=== PATIENT | female | born 1990 | race Caucasian/White ===

== ENCOUNTER 2016-10-20 16:37 | Emergency (ER) | payer OTHER ==
[~2016-10-20] VITALS: Ht 172.7 cm; Wt 108.9 kg
--- NOTE | ~2016-10-20 | EKG ---
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 : 1990 Requested By: Alicia Ash Order Number: [id number] MD: Justino Alonzo Measurements Intervals [place] Rate: 71 P: 41 TX: 163 QRS: 20 QRSD: 107 T: 38 QT: 385 QTc: 419 Interpretive Statements Sinus rhythm Low voltage, precordial leads Compared to ECG 07/18/2013 18:56:16 No significant change was found Electronically Signed On 10-21-2016 14:02:14 CDT by Justino Alonzo [email or web address] <ELECTRONICALLY SIGNED> By: Justino Alonzo MD, [facility] 10/21/16 1402 49 49 Justino Alonzo MD, [facility] /EPI
[~2016-10-20 16:37] MED LIST: ACYCLOVIR 400400 M1 PO; ALBUTEROL2.5 MG/31 INH; AMOXICILLIN500 M1 PO; ANTIVERT25 MG PO; APAP500 PO; AZITHROMYCIN250 MG PO; BENZONATATE200 MG PO; CLEOCIN HCL300 MG PO; COLACE100 MG PO; DOXYCYCLINE 10100 MG PO; FLEXERIL PO; FLONASE 0.05%50 MCG NS; IBUPROFEN 400400 M1 PO; IBUPROFEN 600600 M1 PO; KEFLEX500 MG PO; LEVAQUIN 500 M500 MG PO; MACROBID 100 M100 M1 PO; NAPROSYN500 MG PO; NOHOMEMEDICATIONS; NORCO 5-325 TA1 EACH PO; PAXIL10 MG PO; PERCOCET 5-3251 EACH PO; PHENERGAN 25 MG25 M1 PO; PRENATAL PO; PROGESTERONE100 MG PO; PROMETRIUM100 MG PO; TRINATE TABLET1 TAB; TRINATE TABLET1 TAB PO; TYLENOL325 MG PO; ULTRAM 50MG TAB50 MG PO; VALIUM2 MG PO; VALIUM5 MG PO; VENTOLIN HFA 1818 GM INH; VICODIN 5-5001 EACH PO; ZANAFLEX4 MG PO; ZOFRAN 4 MG ORAL4 MG PO; ZOFRAN ODT4 MG PO; ZOFRAN4 MG PO; ZPAK PO
[2016-10-20 16:59] LABS: ABSOLUTE NEUTROPHILS 4.7 thou/uL (1.4-8.2); BASOPHILS 1.1 % (0.0-2.0); EOSINOPHILS 3.9 % (0.0-3.0); HEMOGLOBIN 12.6 gm/dL (12.0-15.0); LYMPHOCYTES 34.4 % (24.0-44.0); MCV 82.5 fL (80.0-100.0); MONOCYTES 9.8 % (1.0-8.0); PLATELET COUNT 222 thou/uL (150-400); POLYS 50.8 % (36.0-66.0); RBC 4.48 mil/uL (4.20-5.00); RDW 14.6 % (10.5-14.5); WBC 9.3 thou/uL (4.0-11.0)
[2016-10-20 17:09] LABS: ANION GAP 8 mmol/L (7-16); BUN 14 mg/dL (7-18); CALCIUM 9.3 mg/dL (8.5-10.1); CHLORIDE 105 mmol/L (98-107); CO2 25 mmol/L (21-32); CREATININE 0.7 mg/dL (0.6-1.0); GLUCOSE 98 mg/dL (74-106); MANUAL DIFF NO; POTASSIUM 3.6 mmol/L (3.5-5.1); SODIUM 138 mmol/L (136-145)
[2016-10-20 17:16] LABS: ALBUMIN 3.5 g/dL (3.4-5.0); ALKALINE PHOSPHATASE 62 U/L (46-116); SGOT 34 U/L (15-37); SGPT 38 U/L (30-65); TOTAL BILIRUBIN 0.3 mg/dL (<0.1-1.0); TOTAL PROTEIN 7.4 g/dL (6.4-8.2); TROPONIN-I < 0.04 ng/mL (<0.04-0.07)
[2016-10-20] MEDS ORDERED: ZANTAC 150MG T150 MG PO (17:54)
[2016-10-20 18:03] VITALS: BP 97/76
== END 2016-10-20 18:09 | disposition home or self-care (01) ==
LOC: ER 16:37
PROVIDERS: Nurse Practitioner Family
DX: K29.70 Gastritis, unspecified, without bleeding (principal); F41.9 Anxiety disorder, unspecified; Z90.49 Acquired absence of other specified parts of digestive tract; Z88.5 Allergy status to narcotic agent

== ENCOUNTER 2016-11-03 07:25 | Emergency (ER) | payer OTHER ==
[~2016-11-03] VITALS: Ht 172.7 cm; Wt 104.3 kg
[~2016-11-03 07:25] MED LIST changes: +ZANTAC 150MG T150 MG PO
[2016-11-03 09:04] VITALS: BP 100/39
[2016-11-03] MEDS ORDERED: MAALOX ADVANCE770 ML PO (09:21)
== END 2016-11-03 09:30 | disposition home or self-care (01) ==
LOC: ER 07:25
DX: K29.00 Acute gastritis without bleeding (principal); F41.9 Anxiety disorder, unspecified; Z90.49 Acquired absence of other specified parts of digestive tract; Z88.5 Allergy status to narcotic agent

== ENCOUNTER 2017-02-09 16:24 | Emergency (ER) | payer OTHER ==
[~2017-02-09] VITALS: Ht 172.7 cm; Wt 106.6 kg
[~2017-02-09 16:24] MED LIST changes: +MAALOX ADVANCE770 ML PO
[2017-02-09 17:43] LABS: ABSOLUTE NEUTROPHILS 5.9 thou/uL (1.4-8.2); BASOPHILS 0.6 % (0.0-2.0); EOSINOPHILS 3.6 % (0.0-3.0); HEMATOCRIT 35.9 % (37.0-47.0); HEMOGLOBIN 12.2 gm/dL (12.0-15.0); LYMPHOCYTES 22.7 % (24.0-44.0); MANUAL DIFF NO; MCH 29.1 pg (26.0-34.0); MCHC 33.9 g/dL (28.0-37.0); MCV 85.9 fL (80.0-100.0); MONOCYTES 10.1 % (1.0-8.0); PLATELET COUNT 199 thou/uL (150-400); RBC 4.18 mil/uL (4.20-5.00); RDW 14.4 % (10.5-14.5); WBC 9.4 thou/uL (4.0-11.0)
[2017-02-09] MEDS ORDERED: NORCO 5-325 TA1 EACH PO (18:39)
[2017-02-09 18:42] VITALS: BP 97/45
== END 2017-02-09 18:50 | disposition home or self-care (01) ==
LOC: ER 16:24
PROVIDERS: Nurse Practitioner
DX: O20.0 Threatened abortion (principal); F41.9 Anxiety disorder, unspecified; Z3A.11 11 weeks gestation of pregnancy; Z90.49 Acquired absence of other specified parts of digestive tract; Z98.890 Other specified postprocedural states; Z88.5 Allergy status to narcotic agent

== ENCOUNTER 2017-02-10 19:28 | Emergency (ER) | payer OTHER ==
[~2017-02-10] VITALS: Ht 172.7 cm; Wt 106.6 kg
[2017-02-10 20:09] LABS: ABSOLUTE NEUTROPHILS 6.1 thou/uL (1.4-8.2); BASOPHILS 0.5 % (0.0-2.0); EOSINOPHILS 3.5 % (0.0-3.0); HEMOGLOBIN 11.9 gm/dL (12.0-15.0); LYMPHOCYTES 24.9 % (24.0-44.0); MCHC 34.2 g/dL (28.0-37.0); MCV 84.8 fL (80.0-100.0); MONOCYTES 9.6 % (1.0-8.0); PLATELET COUNT 213 thou/uL (150-400); POLYS 61.5 % (36.0-66.0); RBC 4.12 mil/uL (4.20-5.00); RDW 14.6 % (10.5-14.5); WBC 9.9 thou/uL (4.0-11.0)
[2017-02-10 20:14] LABS: MANUAL DIFF NO
[2017-02-10 20:19] LABS: CREATININE 0.8 mg/dL (0.6-1.0); POTASSIUM 3.6 mmol/L (3.5-5.1)
[2017-02-10 21:24] VITALS: BP 110/65
== END 2017-02-10 21:41 | disposition short-term general hospital (02) ==
LOC: ER 19:28
PROVIDERS: Nurse Practitioner
DX: O03.9 Complete or unspecified spontaneous abortion without complication (principal); R00.0 Tachycardia, unspecified; F41.9 Anxiety disorder, unspecified; Z98.890 Other specified postprocedural states; Z88.5 Allergy status to narcotic agent

== ENCOUNTER 2017-04-11 21:49 | Emergency (ER) | payer OTHER ==
[~2017-04-11] VITALS: Ht 172.7 cm; Wt 104.3 kg
[2017-04-11 22:08] LABS: URINE BILIRUBIN 1+ (Negative); URINE BLOOD 2+ (Negative); URINE COLOR YELLOW; URINE GLUCOSE-RANDOM* NEGATIVE (Negative); URINE KETONES 1+ (Negative); URINE NITRITE NEGATIVE (Negative); URINE PROTEIN (DIPSTICK) 1+ (Negative); URINE SPECIFIC GRAVITY >= 1.030 (1.003-1.035); URINE UROBILINOGEN 0.2 E.U./dl (0.2-1.0)
[2017-04-11 22:14] LABS: ICTOTEST (BILI CONFIRMATORY) Negative (Negative)
[2017-04-11 22:17] LABS: CASTS None Seen /LPF (None Seen); CRYSTALS None Seen /LPF (None Seen); SQUAMOUS >10 Many /LPF (0-3); URINE RBC 0-2 Rare /HPF (0-2); URINE WBC 0-5 Rare /HPF (0-5)
[2017-04-11 22:18] LABS: BACTERIA 1-9 Few /HPF (None Seen)
[2017-04-11 22:26] LABS: ABSOLUTE NEUTROPHILS 8.3 thou/uL (1.4-8.2); BASOPHILS 0.3 % (0.0-2.0); EOSINOPHILS 0.1 % (0.0-3.0); HEMATOCRIT 31.1 % (37.0-47.0); HEMOGLOBIN 9.7 gm/dL (12.0-15.0); LYMPHOCYTES 6.5 % (24.0-44.0); MCH 22.2 pg (26.0-34.0); MCHC 31.2 g/dL (28.0-37.0); MONOCYTES 6.1 % (1.0-8.0); PLATELET COUNT 258 thou/uL (150-400); RBC 4.38 mil/uL (4.20-5.00); RDW 19.3 % (10.5-14.5); WBC 9.5 thou/uL (4.0-11.0)
[2017-04-11 22:28] LABS: MANUAL DIFF NO
[2017-04-11 22:33] LABS: CALCIUM 9.6 mg/dL (8.5-10.1); CREATININE 0.8 mg/dL (0.6-1.0); POTASSIUM 3.9 mmol/L (3.5-5.1)
[2017-04-11 22:38] LABS: ALBUMIN 3.8 g/dL (3.4-5.0); DIRECT BILIRUBIN 0.1 mg/dL (<0.1-0.3); TOTAL BILIRUBIN 0.5 mg/dL (<0.1-1.0); TOTAL PROTEIN 8.1 g/dL (6.4-8.2)
[2017-04-11] MEDS ORDERED: ONDANSETRON HCL4 M2 PO (23:58)
[2017-04-11] MEDS ORDERED: BENTYL 20 MG TA20 M1 PO (23:58)
[2017-04-12 00:47] VITALS: BP 104/57
== END 2017-04-12 01:02 | disposition home or self-care (01) ==
LOC: ER 21:49
PROVIDERS: Nurse Practitioner
DX: E86.0 Dehydration (principal); R10.13 Epigastric pain; F41.9 Anxiety disorder, unspecified; Z88.5 Allergy status to narcotic agent; Z98.890 Other specified postprocedural states

== ENCOUNTER 2017-07-14 02:25 | Emergency (ER) | payer BC ==
[~2017-07-14] VITALS: Ht 172.7 cm; Wt 102.1 kg
[~2017-07-14 02:25] MED LIST changes: +BENTYL 20 MG TA20 M1 PO; +ONDANSETRON HCL4 M2 PO
[2017-07-14] MEDS ORDERED: HYDROCORTISONE30 G9 RECTAL (02:48)
[2017-07-14 03:02] LABS: HEMATOCRIT 31.5 % (37.0-47.0); HEMOGLOBIN 9.7 gm/dL (12.0-15.0); MCH 21.2 pg (26.0-34.0); MCHC 30.9 g/dL (28.0-37.0); MCV 68.5 fL (80.0-100.0); PLATELET COUNT 218 thou/uL (150-400); RDW 21.3 % (10.5-14.5); WBC 7.3 thou/uL (4.0-11.0)
[2017-07-14 03:19] LABS: ABSOLUTE NEUTROPHILS 2.3 thou/uL (1.4-8.2); ANISOCYTOSIS 2+
[2017-07-14 03:20] LABS: HYPOCHROMASIA SLIGHT; MICROCYTES 1+
== END 2017-07-14 03:11 | disposition home or self-care (01) ==
LOC: ER 02:25
PROVIDERS: Emergency Medicine
DX: K62.89 Other specified diseases of anus and rectum (principal); Z90.49 Acquired absence of other specified parts of digestive tract; Z88.5 Allergy status to narcotic agent

== ENCOUNTER 2017-08-15 19:43 | Emergency (ER) | payer BC ==
[~2017-08-15] VITALS: Ht 167.6 cm; Wt 102.1 kg
--- NOTE | ~2017-08-15 | EKG ---
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
[~2017-08-15 19:43] MED LIST changes: +HYDROCORTISONE30 G9 RECTAL
[2017-08-15 20:46] LABS: ABSOLUTE NEUTROPHILS 5.7 thou/uL (1.4-8.2); BASOPHILS 0.4 % (0.0-2.0); EOSINOPHILS 2.5 % (0.0-3.0); HEMATOCRIT 32.3 % (37.0-47.0); HEMOGLOBIN 10.5 gm/dL (12.0-15.0); LYMPHOCYTES 25.9 % (24.0-44.0); MCHC 32.4 g/dL (28.0-37.0); MCV 70.9 fL (80.0-100.0); MONOCYTES 10.2 % (1.0-8.0); PLATELET COUNT 250 thou/uL (150-400); RBC 4.56 mil/uL (4.20-5.00); RDW 20.5 % (10.5-14.5); WBC 9.3 thou/uL (4.0-11.0)
[2017-08-15 20:47] LABS: ANION GAP 7 mmol/L (7-16); BUN 13 mg/dL (7-18); CALCIUM 9.8 mg/dL (8.5-10.1); CHLORIDE 107 mmol/L (98-107); CO2 25 mmol/L (21-32); CREATININE 0.8 mg/dL (0.6-1.0); GLUCOSE 90 mg/dL (74-106); POTASSIUM 3.9 mmol/L (3.5-5.1); SODIUM 139 mmol/L (136-145)
[2017-08-15 20:55] LABS: TROPONIN-I < 0.04 ng/mL (<0.06)
[2017-08-15] MEDS ORDERED: NORCO 5-325 TA1 EACH PO (22:06)
[2017-08-15] MEDS ORDERED: ZPAK PO (22:06)
== END 2017-08-15 23:39 | disposition home or self-care (01) ==
LOC: ER 19:43
PROVIDERS: Emergency Medicine
DX: J18.9 Pneumonia, unspecified organism (principal); F41.9 Anxiety disorder, unspecified; Z90.49 Acquired absence of other specified parts of digestive tract; E16.2 Hypoglycemia, unspecified; Z88.6 Allergy status to analgesic agent

== ENCOUNTER 2017-11-11 11:32 | Emergency (ER) | payer OTHER ==
[~2017-11-11] VITALS: Ht 172.7 cm; Wt 102.1 kg
[2017-11-11 12:28] LABS: ABSOLUTE NEUTROPHILS 5.5 thou/uL (1.4-8.2); BASOPHILS 0.7 % (0.0-2.0); EOSINOPHILS 2.9 % (0.0-3.0); HEMATOCRIT 37.4 % (37.0-47.0); HEMOGLOBIN 12.2 gm/dL (12.0-15.0); LYMPHOCYTES 24.6 % (24.0-44.0); MCH 25.7 pg (26.0-34.0); MCHC 32.8 g/dL (28.0-37.0); MCV 78.4 fL (80.0-100.0); MONOCYTES 9.7 % (1.0-8.0); PLATELET COUNT 263 thou/uL (150-400); POLYS 62.1 % (36.0-66.0); RBC 4.77 mil/uL (4.20-5.00); RDW 17.9 % (10.5-14.5); WBC 8.9 thou/uL (4.0-11.0)
[2017-11-11 12:30] LABS: CALCIUM 9.6 mg/dL (8.5-10.1); CREATININE 0.8 mg/dL (0.6-1.0)
[2017-11-11 12:36] LABS: ALBUMIN 3.6 g/dL (3.4-5.0); TOTAL BILIRUBIN 0.3 mg/dL (<0.1-1.0)
[2017-11-11 14:43] VITALS: BP 103/57
== END 2017-11-11 14:43 | disposition home or self-care (01) ==
LOC: ER 11:32
PROVIDERS: Emergency Medicine
DX: R51 Headache (principal); R11.0 Nausea; H53.8 Other visual disturbances; F41.9 Anxiety disorder, unspecified; Z90.49 Acquired absence of other specified parts of digestive tract; Z88.5 Allergy status to narcotic agent

== ENCOUNTER 2017-12-10 10:45 | Emergency (ER) | payer OTHER ==
[~2017-12-10] VITALS: Ht 172.7 cm; Wt 102.1 kg
--- NOTE | ~2017-12-10 | EKG ---
[address] [place] [address] ELECTROCARDIOGRAM REPORT Name: ERNESTO STROUD Room #: DEP [facility]#: [id number] Admission: 12/10/17 Attend Phys: Discharge: 12/10/17 Date of : [birth year] Report #: [id number] THIS REPORT FOR: //name// 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: [facility] : 1990 Requested By: Tesfaye Patterson Order Number: [id number] MD: Justino Alonzo Measurements Intervals [place] Rate: 76 P: 66 VT: 182 QRS: 23 QRSD: 90 T: 52 QT: 377 QTc: 424 Interpretive Statements Sinus rhythm Normal tracing Compared to ECG 08/15/2017 20:37:19 No significant changes Electronically Signed On 12-10-2017 17:08:27 CDT by Justino Alonzo [email or web address] <ELECTRONICALLY SIGNED> By: Justino Alonzo MD, [facility] 12/10/17 1708 1051 1051 Justino Alonzo MD, FACC /EPI
[2017-12-10 11:27] LABS: ABSOLUTE NEUTROPHILS 4.1 thou/uL (1.4-8.2); BASOPHILS 0.6 % (0.0-2.0); EOSINOPHILS 3.8 % (0.0-3.0); HEMATOCRIT 35.3 % (37.0-47.0); HEMOGLOBIN 11.7 gm/dL (12.0-15.0); LYMPHOCYTES 28.2 % (24.0-44.0); MCH 26.8 pg (26.0-34.0); MCHC 33.3 g/dL (28.0-37.0); MCV 80.5 fL (80.0-100.0); MONOCYTES 10.2 % (1.0-8.0); PLATELET COUNT 196 thou/uL (150-400); POLYS 57.2 % (36.0-66.0); RBC 4.38 mil/uL (4.20-5.00); RDW 18.3 % (10.5-14.5); WBC 7.2 thou/uL (4.0-11.0)
[2017-12-10 11:36] LABS: ANION GAP 7 mmol/L (7-16); BUN 13 mg/dL (7-18); CALCIUM 9.2 mg/dL (8.5-10.1); CHLORIDE 107 mmol/L (98-107); CO2 25 mmol/L (21-32); CREATININE 0.8 mg/dL (0.6-1.0); GLUCOSE 95 mg/dL (74-106); POTASSIUM 3.6 mmol/L (3.5-5.1); SODIUM 139 mmol/L (136-145)
[2017-12-10 11:45] LABS: TROPONIN-I <0.06 ng/mL (<0.06)
[2017-12-10] MEDS ORDERED: MOBIC15 MG PO (12:01)
[2017-12-10 12:22] VITALS: BP 122/69
[2017-12-10 12:38] LABS: ANISOCYTOSIS 1+; PLATELET ESTIMATE NORMAL
== END 2017-12-10 12:22 | disposition home or self-care (01) ==
LOC: ER 10:45
PROVIDERS: Physician Assistant
DX: R07.2 Precordial pain (principal); F41.9 Anxiety disorder, unspecified; Z90.49 Acquired absence of other specified parts of digestive tract; Z88.5 Allergy status to narcotic agent

== ENCOUNTER 2018-04-04 18:22 | Emergency (ER) | payer OTHER ==
[~2018-04-04] VITALS: Ht 172.7 cm; Wt 104.3 kg
[~2018-04-04 18:22] MED LIST changes: +MOBIC15 MG PO
[2018-04-04] MEDS ORDERED: NORFLEX100 MG PO (19:14)
[2018-04-04] MEDS ORDERED: MOBIC7.5 MG PO (19:14)
[2018-04-05] MEDS ORDERED: PROTONIX40 M1 PO (20:11)
[2018-04-05] MEDS ORDERED: TUMS PO (20:11)
[2018-04-05] MEDS ORDERED: ZOFRAN ODT4 MG PO (20:12)
== END 2018-04-04 19:26 | disposition home or self-care (01) ==
LOC: ER 18:22
DX: S76.012A Strain of muscle, fascia and tendon of left hip, initial encounter (principal); X58.XXXA Exposure to other specified factors, initial encounter; Y93.89 Activity, other specified; Y92.89 Other specified places as the place of occurrence of the external cause; Y99.8 Other external cause status; F41.9 Anxiety disorder, unspecified; Z90.49 Acquired absence of other specified parts of digestive tract

== ENCOUNTER 2018-04-05 19:09 | Emergency (ER) | payer OTHER ==
[~2018-04-05] VITALS: Ht 172.7 cm; Wt 108.9 kg
[~2018-04-05 19:09] MED LIST changes: +MOBIC7.5 MG PO; +NORFLEX100 MG PO
[2018-04-05 19:42] LABS: URINE BILIRUBIN NEGATIVE (Negative); URINE BLOOD 2+ (Negative); URINE CLARITY CLEAR; URINE COLOR YELLOW; URINE GLUCOSE-RANDOM* NEGATIVE (Negative); URINE KETONES TRACE (Negative); URINE LEUKOCYTES-REFLEX 1+ (Negative); URINE NITRITE-REFLEX NEGATIVE (Negative); URINE PROTEIN (DIPSTICK) NEGATIVE (Negative); URINE SPECIFIC GRAVITY >= 1.030 (1.005-1.035); URINE UROBILINOGEN 0.2 E.U./dl (0.2-1.0)
[2018-04-05 19:59] LABS: CASTS None Seen /LPF (None Seen); CRYSTALS None Seen /LPF (None Seen); SQUAMOUS >10 Many /LPF (0-3)
[2018-04-05 20:00] LABS: URINE RBC 3-10 Few /HPF (0-2)
[2018-04-05] MEDS ORDERED: PROTONIX40 M1 PO (20:11)
[2018-04-05] MEDS ORDERED: TUMS PO (20:11)
[2018-04-05] MEDS ORDERED: ZOFRAN ODT4 MG PO (20:12)
== END 2018-04-05 20:30 | disposition home or self-care (01) ==
LOC: ER 19:09
PROVIDERS: Emergency Medicine
DX: K21.0 Gastro-esophageal reflux disease with esophagitis (principal); F41.9 Anxiety disorder, unspecified; Z88.5 Allergy status to narcotic agent; Z98.890 Other specified postprocedural states; Z90.49 Acquired absence of other specified parts of digestive tract

== ENCOUNTER 2018-06-13 11:50 | Emergency (ER) | payer OTHER ==
[~2018-06-13] VITALS: Ht 172.7 cm; Wt 106.6 kg
[~2018-06-13 11:50] MED LIST changes: +PROTONIX40 M1 PO; +TUMS PO
[2018-06-13] MEDS ORDERED: NAPROSYN500 MG PO (13:21)
[2018-06-13 13:40] VITALS: BP 118/79
[2018-06-13] MEDS ORDERED: NOHOMEMEDICATIONS (13:47)
== END 2018-06-13 13:41 | disposition home or self-care (01) ==
LOC: ER 11:50
DX: J02.0 Streptococcal pharyngitis (principal); F41.9 Anxiety disorder, unspecified; E66.01 Morbid (severe) obesity due to excess calories; Z68.35 Body mass index [BMI] 35.0-35.9, adult; Z98.890 Other specified postprocedural states; Z90.49 Acquired absence of other specified parts of digestive tract; Z88.6 Allergy status to analgesic agent

== ENCOUNTER 2018-06-28 22:36 | Emergency (ER) | payer OTHER ==
[~2018-06-28] VITALS: Ht 172.7 cm; Wt 106.6 kg
[2018-06-28 23:28] LABS: URINE BILIRUBIN NEGATIVE (Negative); URINE BLOOD 2+ (Negative); URINE CLARITY CLEAR; URINE COLOR YELLOW; URINE GLUCOSE-RANDOM* NEGATIVE (Negative); URINE KETONES NEGATIVE (Negative); URINE NITRITE-REFLEX NEGATIVE (Negative); URINE PROTEIN (DIPSTICK) NEGATIVE (Negative); URINE SPECIFIC GRAVITY >= 1.030 (1.005-1.035); URINE UROBILINOGEN 0.2 E.U./dl (0.2-1.0)
[2018-06-28 23:30] LABS: URINE LEUKOCYTES-REFLEX 1+ (Negative)
[2018-06-28 23:38] LABS: CRYSTALS None Seen /LPF (None Seen); HYALINE CASTS 0-3 Few /LPF (None Seen); MUCUS 4-6 Moderate strn/LPF (None Seen); SQUAMOUS 4-10 Moderate /LPF (0-3); URINE RBC 3-10 Few /HPF (0-2); URINE WBC-REFLEX 6-15 Few /HPF (0-5)
[2018-06-28 23:46] LABS: ABSOLUTE NEUTROPHILS 6.8 thou/uL (1.4-8.2); BASOPHILS 0.7 % (0.0-2.0); EOSINOPHILS 2.3 % (0.0-3.0); HEMATOCRIT 37.3 % (37.0-47.0); HEMOGLOBIN 12.5 gm/dL (12.0-15.0); LYMPHOCYTES 26.5 % (24.0-44.0); MCH 28.6 pg (26.0-34.0); MCHC 33.7 g/dL (28.0-37.0); MCV 84.9 fL (80.0-100.0); MONOCYTES 9.1 % (1.0-8.0); PLATELET COUNT 207 thou/uL (150-400); POLYS 61.4 % (36.0-66.0); RBC 4.39 mil/uL (4.20-5.00); RDW 14.7 % (10.5-14.5); WBC 11.1 thou/uL (4.0-11.0)
[2018-06-28 23:55] LABS: CALCIUM 9.6 mg/dL (8.5-10.1); CREATININE 0.7 mg/dL (0.6-1.0)
[2018-06-29] MEDS ORDERED: KEFLEX500 M1 PO (02:38)
[2018-06-29 02:44] VITALS: BP 136/72
== END 2018-06-29 02:45 | disposition home or self-care (01) ==
LOC: ER 22:36
PROVIDERS: Student in an Organized Health Care Education/Training Program
DX: O26.891 Other specified pregnancy related conditions, first trimester (principal); R10.30 Lower abdominal pain, unspecified; Z3A.01 Less than 8 weeks gestation of pregnancy

== ENCOUNTER 2018-08-10 19:07 | Emergency (ER) | payer OTHER ==
[~2018-08-10] VITALS: Ht 172.7 cm; Wt 106.6 kg
[~2018-08-10 19:07] MED LIST changes: +KEFLEX500 M1 PO
[2018-08-10] MEDS ORDERED: PRENATAL PO (19:30)
[2018-08-10 20:17] LABS: URINE BILIRUBIN NEGATIVE (Negative); URINE BLOOD 2+ (Negative); URINE CLARITY CLEAR; URINE COLOR YELLOW; URINE GLUCOSE-RANDOM* NEGATIVE (Negative); URINE KETONES 2+ (Negative); URINE LEUKOCYTES-REFLEX TRACE (Negative); URINE NITRITE-REFLEX NEGATIVE (Negative); URINE PROTEIN (DIPSTICK) NEGATIVE (Negative); URINE SPECIFIC GRAVITY >= 1.030 (1.005-1.035); URINE UROBILINOGEN 0.2 E.U./dl (0.2-1.0)
[2018-08-10 20:19] LABS: SQUAMOUS 4-10 Moderate /LPF (0-3); URINE WBC-REFLEX 0-5 Rare /HPF (0-5)
[2018-08-10 20:20] LABS: CASTS None Seen /LPF (None Seen); CRYSTALS None Seen /LPF (None Seen); URINE RBC 3-10 Few /HPF (0-2)
[2018-08-10] MEDS ORDERED: AMOXICILLIN500 M1 PO (20:23)
[2018-08-10 20:35] VITALS: BP 112/35
== END 2018-08-10 20:37 | disposition home or self-care (01) ==
LOC: ER 19:07
PROVIDERS: Physician Assistant
DX: J02.9 Acute pharyngitis, unspecified (principal); O23.41 Unspecified infection of urinary tract in pregnancy, first trimester; O99.511 Diseases of the respiratory system complicating pregnancy, first trimester; J06.9 Acute upper respiratory infection, unspecified; Z3A.12 12 weeks gestation of pregnancy

== ENCOUNTER 2018-12-31 08:25 | Emergency (ER) | payer OTHER ==
[~2018-12-31] VITALS: Ht 172.7 cm; Wt 111.1 kg
[~2018-12-31 08:25] MED LIST changes: +ONDANSETRON ODT4 MG PO; +ONDANSETRON ODT8 MG PO; +PROMS25 WY RECTAL
[2018-12-31 09:36] LABS: URINE BILIRUBIN NEGATIVE (Negative); URINE BLOOD TRACE (Negative); URINE COLOR YELLOW; URINE GLUCOSE-RANDOM* NEGATIVE (Negative); URINE KETONES NEGATIVE (Negative); URINE LEUKOCYTES-REFLEX 1+ (Negative); URINE NITRITE-REFLEX NEGATIVE (Negative); URINE PROTEIN (DIPSTICK) NEGATIVE (Negative); URINE SPECIFIC GRAVITY 1.025 (1.005-1.035); URINE UROBILINOGEN 0.2 E.U./dl (0.2-1.0)
[2018-12-31 09:37] LABS: URINE CLARITY HAZY
[2018-12-31 09:56] LABS: SQUAMOUS >10 Many /LPF (0-3)
[2018-12-31 09:57] LABS: CASTS None Seen /LPF (None Seen); CRYSTALS None Seen /LPF (None Seen); URINE RBC 0-2 Rare /HPF (0-2)
[2018-12-31] MEDS ORDERED: PREDNISONE 20 M20 MG PO (10:36)
[2018-12-31] MEDS ORDERED: KEFLEX500 M1 PO (10:36)
[2018-12-31 10:41] VITALS: BP 97/47
== END 2018-12-31 10:41 | disposition home or self-care (01) ==
LOC: ER 08:25
PROVIDERS: Emergency Medicine
DX: O23.93 Unspecified genitourinary tract infection in pregnancy, third trimester (principal); R82.71 Bacteriuria; M54.5 Low back pain; F41.9 Anxiety disorder, unspecified; Z90.49 Acquired absence of other specified parts of digestive tract; Z79.899 Other long term (current) drug therapy; Z3A.32 32 weeks gestation of pregnancy

== ENCOUNTER 2019-05-14 02:37 | Emergency (ER) | payer OTHER ==
[~2019-05-14] VITALS: Ht 172.7 cm; Wt 98.9 kg
[~2019-05-14 02:37] MED LIST changes: +PREDNISONE 20 M20 MG PO
[2019-05-14] MEDS ORDERED: AMOXICILLIN 50500 M1 PO ×2 (04:39)
[2019-05-14] MEDS ORDERED: NORCO 5-325 TA1 EAC1 PO (04:39)
[2019-05-14] MEDS ORDERED: SENNA-DOCUSATE1 EAC1 PO ×2 (04:39)
[2019-05-14 05:02] VITALS: BP 118/63
== END 2019-05-14 05:03 | disposition home or self-care (01) ==
LOC: ER 02:37
DX: H66.91 Otitis media, unspecified, right ear (principal); E66.01 Morbid (severe) obesity due to excess calories; F41.9 Anxiety disorder, unspecified; Z68.33 Body mass index [BMI] 33.0-33.9, adult; Z98.890 Other specified postprocedural states; Z90.49 Acquired absence of other specified parts of digestive tract; Z88.6 Allergy status to analgesic agent

== ENCOUNTER 2019-05-16 09:27 | Emergency (ER) | payer OTHER ==
[~2019-05-16] VITALS: Ht 172.7 cm; Wt 98.9 kg
[~2019-05-16 09:27] MED LIST changes: +AMOXICILLIN 50500 M1 PO; +NORCO 5-325 TA1 EAC1 PO; +SENNA-DOCUSATE1 EAC1 PO
[2019-05-16 11:07] VITALS: BP 114/52
== END 2019-05-16 11:08 | disposition home or self-care (01) ==
LOC: ER 09:27
DX: H72.91 Unspecified perforation of tympanic membrane, right ear (principal); H66.91 Otitis media, unspecified, right ear; Z98.890 Other specified postprocedural states; Z88.5 Allergy status to narcotic agent

== ENCOUNTER 2019-07-26 20:15 | Emergency (ER) | payer OTHER ==
[~2019-07-26] VITALS: Ht 172.7 cm; Wt 104.3 kg
[2019-07-26 20:48] LABS: ABSOLUTE NEUTROPHILS 8.1 thou/uL (1.4-8.2); BASOPHILS 0.4 % (0.0-2.0); EOSINOPHILS 2.9 % (0.0-3.0); HEMATOCRIT 38.9 % (37.0-47.0); HEMOGLOBIN 12.8 gm/dL (12.0-15.0); LYMPHOCYTES 19.3 % (24.0-44.0); MCH 27.5 pg (26.0-34.0); MCHC 32.8 g/dL (28.0-37.0); MCV 83.8 fL (80.0-100.0); MONOCYTES 8.6 % (1.0-8.0); PLATELET COUNT 221 thou/uL (150-400); POLYS 68.8 % (36.0-66.0); RBC 4.64 mil/uL (4.20-5.00); RDW 15.5 % (10.5-14.5); WBC 11.8 thou/uL (4.0-11.0)
[2019-07-26 20:52] LABS: ANION GAP 10 mmol/L (7-16); BUN 15 mg/dL (7-18); CALCIUM 9.7 mg/dL (8.5-10.1); CHLORIDE 103 mmol/L (98-107); CO2 25 mmol/L (21-32); CREATININE 0.8 mg/dL (0.6-1.0); GLUCOSE 88 mg/dL (74-106); POTASSIUM 3.8 mmol/L (3.5-5.1); SODIUM 138 mmol/L (136-145)
[2019-07-26 20:58] LABS: ALBUMIN 3.6 g/dL (3.4-5.0); DIRECT BILIRUBIN < 0.1 mg/dL (<0.1-0.2); LIPASE 116 U/L (73-393); SGOT 18 U/L (15-37); SGPT 19 U/L (30-65); TOTAL BILIRUBIN 0.3 mg/dL (<0.1-1.0); TOTAL PROTEIN 7.3 g/dL (6.4-8.2)
[2019-07-26] MEDS ORDERED: BENTYL 20 MG TA20 M1 PO (21:09)
[2019-07-26 21:10] LABS: URINE BILIRUBIN NEGATIVE (Negative); URINE BLOOD 2+ (Negative); URINE CLARITY CLEAR; URINE COLOR YELLOW; URINE GLUCOSE-RANDOM* NEGATIVE (Negative); URINE KETONES NEGATIVE (Negative); URINE LEUKOCYTES-REFLEX NEGATIVE (Negative); URINE NITRITE-REFLEX NEGATIVE (Negative); URINE PROTEIN (DIPSTICK) NEGATIVE (Negative); URINE UROBILINOGEN 0.2 E.U./dl (0.2-1.0)
[2019-07-26 21:29] LABS: CASTS None Seen /LPF (None Seen); MUCUS None Seen strn/LPF (None Seen); SQUAMOUS 0-3 Few /LPF (0-3)
[2019-07-26 21:30] LABS: BACTERIA-REFLEX None Seen /HPF (None Seen); CRYSTALS None Seen /LPF (None Seen); URINE RBC 0-2 Rare /HPF (0-2); URINE WBC-REFLEX None Seen /HPF (0-5)
[2019-07-26] MEDS ORDERED: ZOFRAN ODT4 MG PO (23:58)
[2019-07-26] MEDS ORDERED: MOBIC15 MG PO (23:58)
[2019-07-27 00:30] VITALS: BP 99/44
== END 2019-07-27 00:30 | disposition home or self-care (01) ==
LOC: ER 20:15
PROVIDERS: Emergency Medicine
DX: R19.7 Diarrhea, unspecified (principal); R10.31 Right lower quadrant pain; E66.01 Morbid (severe) obesity due to excess calories; Z88.5 Allergy status to narcotic agent; Z98.890 Other specified postprocedural states; Z90.49 Acquired absence of other specified parts of digestive tract; Z68.35 Body mass index [BMI] 35.0-35.9, adult

== ENCOUNTER 2019-09-30 19:33 | Emergency (ER) | payer OTHER ==
[~2019-09-30] VITALS: Ht 172.7 cm; Wt 104.3 kg
[2019-09-30 20:28] LABS: ABSOLUTE NEUTROPHILS 7.9 thou/uL (1.4-8.2); BASOPHILS 1.1 % (0.0-2.0); EOSINOPHILS 3.5 % (0.0-3.0); HEMATOCRIT 39.3 % (37.0-47.0); HEMOGLOBIN 13.1 gm/dL (12.0-15.0); LYMPHOCYTES 24.7 % (24.0-44.0); MCH 28.7 pg (26.0-34.0); MCHC 33.4 g/dL (28.0-37.0); MONOCYTES 9.3 % (1.0-8.0); PLATELET COUNT 208 thou/uL (150-400); POLYS 61.4 % (36.0-66.0); RBC 4.57 mil/uL (4.20-5.00); RDW 15.5 % (10.5-14.5); WBC 13.9 thou/uL (4.0-11.0)
[2019-09-30 20:35] LABS: ANION GAP 10 mmol/L (7-16); BUN 17 mg/dL (7-18); CALCIUM 9.2 mg/dL (8.5-10.1); CHLORIDE 104 mmol/L (98-107); CO2 22 mmol/L (21-32); CREATININE 0.8 mg/dL (0.6-1.0); GLUCOSE 109 mg/dL (74-106); POTASSIUM 3.6 mmol/L (3.5-5.1); SODIUM 136 mmol/L (136-145)
[2019-09-30 20:45] LABS: ALBUMIN 3.5 g/dL (3.4-5.0); SGOT 19 U/L (15-37); SGPT 25 U/L (30-65); TOTAL BILIRUBIN 0.3 mg/dL (<0.1-1.0); TOTAL PROTEIN 7.6 g/dL (6.4-8.2); TROPONIN-I <0.06 ng/mL (<0.06)
[2019-09-30 20:54] VITALS: BP 115/52
--- NOTE | 2019-10-01 08:02 | EKG ---
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
== END 2019-09-30 20:58 | disposition home or self-care (01) ==
LOC: ER 19:33
PROVIDERS: Emergency Medicine
DX: T75.4XXA Electrocution, initial encounter (principal); R53.1 Weakness; R53.83 Other fatigue; R07.89 Other chest pain; R10.9 Unspecified abdominal pain; F41.9 Anxiety disorder, unspecified; E66.01 Morbid (severe) obesity due to excess calories; Z98.890 Other specified postprocedural states; Z90.49 Acquired absence of other specified parts of digestive tract; Z88.6 Allergy status to analgesic agent; Z88.5 Allergy status to narcotic agent; W86.1XXA Exposure to industrial wiring, appliances and electrical machinery, initial encounter; Y93.89 Activity, other specified; Y92.69 Other specified industrial and construction area as the place of occurrence of the external cause; Y99.8 Other external cause status

== ENCOUNTER 2019-12-06 19:53 | Emergency (ER) | payer OTHER ==
[~2019-12-06] VITALS: Ht 172.7 cm; Wt 104.3 kg
[2019-12-06 20:33] LABS: URINE BILIRUBIN 1+ (Negative); URINE BLOOD 3+ (Negative); URINE CLARITY CLEAR; URINE COLOR YELLOW; URINE GLUCOSE-RANDOM* NEGATIVE (Negative); URINE KETONES NEGATIVE (Negative); URINE LEUKOCYTES-REFLEX TRACE (Negative); URINE NITRITE-REFLEX NEGATIVE (Negative); URINE PROTEIN (DIPSTICK) 1+ (Negative); URINE SPECIFIC GRAVITY >= 1.030 (1.005-1.035); URINE UROBILINOGEN 0.2 E.U./dl (0.2-1.0)
[2019-12-06 20:38] LABS: ICTOTEST (BILI CONFIRMATORY) Positive (Negative)
[2019-12-06 20:53] LABS: MUCUS 0-3 Light strn/LPF (None Seen); SQUAMOUS 0-3 Few /LPF (0-3)
[2019-12-06 20:54] LABS: BACTERIA-REFLEX None Seen /HPF (None Seen); CRYSTALS None Seen /LPF (None Seen); HYALINE CASTS 0-3 Few /LPF (None Seen); URINE RBC >20 Many /HPF (0-2); URINE WBC-REFLEX 0-5 Rare /HPF (0-5)
[2019-12-06 22:10] VITALS: BP 109/72
== END 2019-12-06 22:20 | disposition home or self-care (01) ==
LOC: ER 19:53
PROVIDERS: Emergency Medicine
DX: J06.9 Acute upper respiratory infection, unspecified (principal); J02.9 Acute pharyngitis, unspecified; H92.01 Otalgia, right ear; Z88.5 Allergy status to narcotic agent; Z20.828 Contact with and (suspected) exposure to other viral communicable diseases